=== PATIENT | male | born 1965 | race American Indian/Alaskan Native ===

== ENCOUNTER 2017-11-06 02:21 | Emergency (ER) | payer SELFPAY ==
[2017-11-06 02:56] VITALS: BP 176/124
== END 2017-11-06 05:45 | disposition left against medical advice (07) ==
LOC: ED 02:21
DX: M79.89 Other specified soft tissue disorders (principal); Z53.21 Procedure and treatment not carried out due to patient leaving prior to being seen by health care provider
CPT/HCPCS: 87116; 87430